=== PATIENT | male | born 1950 | race Caucasian/White ===

== ENCOUNTER 2021-11-27 15:22 | Inpatient (IN) | payer MEDICARE, BC ==
[2021-11-27 17:06] LABS: ANION GAP 15.2 meq/L (7-15); CHLORIDE,CL 98 mmol/L (98-107); ESTIMATED GFR 59 mL/min (>=60); SODIUM,NA 134 mmol/L (136-145)
[2021-11-27] MEDS ORDERED: Calcium Carbonate 500 MG Tab.Chew PO PRN (17:22)
[2021-11-27] MEDS ORDERED: Acetaminophen 325 MG Tab PO PRN (17:22)
[2021-11-27] MEDS ORDERED: Azithromycin 500 MG in Sodium Chloride 0.9% 250 ML IV ONE (17:37)
[2021-11-27] MEDS ORDERED: cefTRIAXone 1 GM in Sodium Chloride 0.9% 100 ML IV SCH (17:45)
[2021-11-27] MEDS: cefTRIAXone 1 GM in Sodium Chloride 0.9% 100 ML IV SCH (18:31)
[2021-11-27] MEDS ORDERED: Benzonatate 100 MG Cap PO PRN (18:54)
[2021-11-27] MEDS ORDERED: Codeine/guaiFENesin 10-100 MG/5 ML Syrup 5 ML Cup PO PRN (18:56)
[2021-11-27] MEDS: Losartan 25 MG Tab PO SCH (19:17)
[2021-11-27] MEDS ORDERED: Ibuprofen 200 MG Tab PO PRN (20:21)
[2021-11-28 06:58] LABS: ANION GAP 14.8 meq/L (7-15)
[2021-11-28] MEDS ORDERED: MULTIVITAMIN PO SCH (08:00)
[2021-11-28] MEDS: Multivitamin Tab PO SCH (08:48)
[2021-11-28] MEDS: Azithromycin 250 MG Tab PO SCH (08:49)
[2021-11-28] MEDS: guaiFENesin 600 MG Tab.ER PO SCH ×3 (08:49→18:03)
[2021-11-28] MEDS: Losartan 25 MG Tab PO SCH ×2 (08:50→18:03)
[2021-11-28] MEDS: cefTRIAXone 1 GM in Sodium Chloride 0.9% 100 ML IV SCH (08:50)
[2021-11-29] MEDS: guaiFENesin 600 MG Tab.ER PO SCH (08:40)
[2021-11-29] MEDS: Multivitamin Tab PO SCH (08:40)
[2021-11-29] MEDS: Azithromycin 250 MG Tab PO SCH (08:40)
[2021-11-29] MEDS: cefTRIAXone 1 GM in Sodium Chloride 0.9% 100 ML IV SCH (08:40)
[2021-11-29] MEDS: Losartan 25 MG Tab PO SCH (08:41)
[2021-11-29 08:51] VITALS: BP 149/56
[2021-11-29 09:06] VITALS: PULSE 55
== END 2021-11-29 10:35 | disposition home or self-care (01) | DRG 195 ==
LOC: LL.ED 15:22 → LL.MS 17:14
PROVIDERS: ADMIT Family Medicine; ATTEND Family Medicine
DX: J18.9 Pneumonia, unspecified organism (principal); I10 Essential (primary) hypertension; Z87.01 Personal history of pneumonia (recurrent); R53.1 Weakness; C91.11 Chronic lymphocytic leukemia of B-cell type in remission; Z20.822 Contact with and (suspected) exposure to COVID-19; Z79.899 Other long term (current) drug therapy; Z88.8 Allergy status to other drugs, medicaments and biological substances; Z88.2 Allergy status to sulfonamides; Z88.1 Allergy status to other antibiotic agents
CPT/HCPCS: 36415; 71046; 80048; 80053; 85025; A9270-GY; J0456; J0696; J7050; U0002